=== PATIENT | male | born 1970 | race Caucasian/White ===

== ENCOUNTER 2020-08-31 14:58 | Outpatient (REF) | payer OTHER, SELFPAY | END 2020-08-31 14:59 | disposition home or self-care (01) | LOC: HO.BBR 14:58 | PROVIDERS: Visit Provider Internal Medicine Hematology | DX: Z13.89 Encounter for screening for other disorder (principal) ==

== ENCOUNTER 2020-12-11 12:58 | Outpatient (REF) | payer OTHER, SELFPAY | END 2020-12-11 12:59 | disposition home or self-care (01) | LOC: HO.BBR 12:58 | PROVIDERS: Visit Provider Internal Medicine Hematology | DX: Z13.89 Encounter for screening for other disorder (principal) ==

== ENCOUNTER 2021-01-30 14:57 | Outpatient (REF) | payer OTHER, SELFPAY | END 2021-01-30 14:58 | disposition home or self-care (01) | LOC: HO.BBR 14:57 | PROVIDERS: Visit Provider Internal Medicine Hematology | DX: E83.110 Hereditary hemochromatosis (principal) | CPT/HCPCS: 85014; 85018; 99195 ==

== ENCOUNTER 2021-04-04 14:07 | Outpatient (REF) | payer OTHER, SELFPAY | END 2021-04-04 14:08 | disposition home or self-care (01) | LOC: HO.BBR 14:07 | PROVIDERS: Visit Provider Internal Medicine Hematology | DX: Z13.89 Encounter for screening for other disorder (principal) ==

== ENCOUNTER 2021-08-02 14:57 | Outpatient (REF) | payer OTHER, SELFPAY | END 2021-08-02 14:58 | disposition home or self-care (01) | LOC: HO.BBR 14:57 | PROVIDERS: Visit Provider Internal Medicine Hematology | DX: Z13.89 Encounter for screening for other disorder (principal) ==

== ENCOUNTER 2021-11-29 15:00 | Outpatient (REF) | payer OTHER, SELFPAY | END 2021-11-29 15:01 | disposition home or self-care (01) | LOC: HO.BBR 15:00 | PROVIDERS: Visit Provider Internal Medicine Hematology | DX: Z13.89 Encounter for screening for other disorder (principal) ==

== ENCOUNTER 2022-03-20 14:48 | Outpatient (REF) | payer OTHER, SELFPAY | END 2022-03-20 14:49 | disposition home or self-care (01) | LOC: HO.BBR 14:48 | PROVIDERS: Visit Provider Internal Medicine Hematology | DX: Z13.89 Encounter for screening for other disorder (principal) ==

== ENCOUNTER 2022-07-10 15:05 | Outpatient (REF) | payer OTHER, SELFPAY | END 2022-07-10 15:06 | disposition home or self-care (01) | LOC: HO.BBR 15:05 | PROVIDERS: Visit Provider Internal Medicine Hematology | DX: Z13.89 Encounter for screening for other disorder (principal) ==

== ENCOUNTER 2022-10-16 14:23 | Outpatient (REF) | payer OTHER, SELFPAY | END 2022-10-16 14:24 | disposition home or self-care (01) | LOC: HO.BBR 14:23 | PROVIDERS: Visit Provider Internal Medicine Hematology | DX: Z13.89 Encounter for screening for other disorder (principal) ==

== ENCOUNTER 2023-01-14 15:03 | Outpatient (REF) | payer OTHER, SELFPAY | END 2023-01-14 15:04 | disposition home or self-care (01) | LOC: HO.BBR 15:03 | PROVIDERS: Visit Provider Internal Medicine Hematology | DX: Z13.89 Encounter for screening for other disorder (principal) ==

== ENCOUNTER 2023-04-16 14:58 | Outpatient (REF) | payer OTHER, SELFPAY | END 2023-04-16 14:59 | disposition home or self-care (01) | LOC: HO.BBR 14:58 | PROVIDERS: Visit Provider Internal Medicine Hematology | DX: Z13.89 Encounter for screening for other disorder (principal) ==

== ENCOUNTER 2023-08-04 14:53 | Outpatient (REF) | payer OTHER, SELFPAY | END 2023-08-04 14:54 | disposition home or self-care (01) | LOC: HO.BBR 14:53 | PROVIDERS: Visit Provider Internal Medicine Hematology | DX: Z13.89 Encounter for screening for other disorder (principal) ==

== ENCOUNTER 2023-11-10 14:54 | Outpatient (REF) | payer OTHER, SELFPAY | END 2023-11-10 14:55 | disposition home or self-care (01) | LOC: HO.BBR 14:54 | PROVIDERS: Visit Provider Internal Medicine Hematology | DX: Z13.89 Encounter for screening for other disorder (principal) ==

== ENCOUNTER 2024-02-09 14:37 | Outpatient (REF) | payer OTHER, SELFPAY | END 2024-02-09 14:38 | disposition home or self-care (01) | LOC: HO.BBR 14:37 | PROVIDERS: Visit Provider Internal Medicine Hematology | DX: Z13.89 Encounter for screening for other disorder (principal) ==

== ENCOUNTER 2024-05-10 14:47 | Outpatient (REF) | payer OTHER, SELFPAY | END 2024-05-10 14:48 | disposition home or self-care (01) | LOC: HO.BBR 14:47 | PROVIDERS: Visit Provider Internal Medicine Hematology | DX: Z13.89 Encounter for screening for other disorder (principal) ==

== ENCOUNTER 2024-07-29 14:35 | Outpatient (REF) | payer OTHER, SELFPAY | END 2024-07-29 14:36 | disposition home or self-care (01) | LOC: HO.BBR 14:35 | PROVIDERS: Visit Provider Internal Medicine Hematology | DX: Z13.89 Encounter for screening for other disorder (principal) ==

== ENCOUNTER 2024-11-01 09:30 | Outpatient (AMB) | payer OTHER, SELFPAY ==
--- NOTE | 2024-11-01 09:38 | A.OFFPC_ITS ---
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 He transferred from my panel at [facility]. He requested his medical records twice in March. There are no medical records available at the time of this visit. The patient provides the history since I do not have his medical records. Dr. Jones follows the patient for hemochromatosis. He has therapeutic phlebotomy every 3 months. He saw [facility] cardiology, Dr. Hitchcock, in 2023. He had an LDCT which showed coronary calcifications. He then had a coronary artery calcium score test done, and he was referred to Cardiology for further assessment. Patient had a negative stress test and echocardiogram. They recommended a statin for cardiovascular prevention, but he continues to decline the medication out of concern for side effects. He is working on quitting smoking. Patient believes he is due for LDCT at [facility]. He saw [facility] gastro for fatty liver disease. They ordered a repeat ultrasound, and he will have a follow up for the results. He received seasonal influenza vaccine and the COVID booster. ROS: Constitutional: No unexplained weight loss, fever, chills, fatigue or night sweats. Respiratory: No shortness of breath, cough or sputum production. Cardiovascular: No chest pain, chest pressure or chest discomfort. No p alpitations or pedal edema. Gastrointestinal: No anorexia, nausea, vomiting or diarrhea. No abdominal pain or blood in stool. Neurologic: No headache, dizziness, syncope Physical exam: Constitutional: Alert, in no distress. Neck: Supple, Full range of motion. No lymphadenopathy. Respiratory: Clear to auscultation. Cardiovascular: S1 S2 regular. No murmurs Psychiatric: Normal mood and affect REPLACED BY [facility] Medical History (Updated 11/01/24 @ 14:05 by GAYATRI Castañeda) Hyperlipidemia Tobacco use disorder Hepatic steatosis Hereditary hemochromatosis Screening for cardiovascular condition Surgical History (Updated 11/01/24 @ 10:08 by Mimi Lopez CMA) History of hip surgery Family History (Updated 11/01/24 @ 10:13 by Mimi Lopez CMA) Father Alcoholic COPD (chronic obstructive pulmonary disease) Depression CAD (coronary artery disease) Paternal Grandmother Alcoholic Paternal Grandfather Alcoholic Mother PTSD (post-traumatic stress disorder) Depression Brother Depression Other FH: mental illness HTN (hypertension) Lung cancer Substance abuse Social History Housing: House Alcohol intake: current Patient Tobacco Use Status: Current everyday Tobacco user Tobacco use type: Cigarette Cigarettes Per Day: 4 Years Smoked: 32 e-Cigarette/Vaping Use: Never Used Second Hand Smoke Exposure: No service: Yes Current occupational status: employed Current occupation: [employer] Current occupational exposures/hazards: Yes Cognitive needs: No Hearing needs: No Vision needs: No Questionnaire PHQ-9 Over the last 2 weeks, how often have you been bothered by any of the following problems? 1. Little interest or pleasure in doing things: not at all 2. Feeling down, depressed, or hopeless: not at all 3. Trouble falling or staying asleep, or sleeping too much: not at all 4. Feeling tired or having little energy: not at all 5. Poor appetite or overeating: not at all 6. Feeling bad about yourself - or that you are a failure or have let yourself or your family down: not at all 7. Trouble concentrating on things, such as reading the newspaper or watching television: not at all 8. Moving or speaking so slowly that other people could have noticed. Or the opposite - being so fidgety or restless that you have been moving around a lot more than usual: not at all 9. Thoughts that you would be better off or of hurting yourself in some way: not at all Total score: 0 Depression Screening Interpretation: Negative Depression Screening Done: Yes 82410 - PHQ-9 Billing: Yes Source: Developed by Drs. Freddie Jennings, Savita Card, Nile Kearney and colleagues, with an educational parish from [employer]. Thrive Questionnaire Date Thrive assessed: 11/01/24 I am a: Patient What is your living situation today?: I have a steady place to live Within the past 12 months, did the food you bought not last and you didn't have the money to get more?: Sometimes True Within the past 12 months, did you worry whether your food would run out before you got money to buy more?: Never true Do you have trouble paying for medicines?: No Do you have trouble getting transportation to medical appointments?: No Do you have trouble paying your heating and electricity bill?: No Do you have trouble taking care of your child, family member or friend?: No Do you have trouble with day-to-day activities such as bathing, preparing meals, shopping, managing finances, etc.?: No Are you currently unemployed and looking for a job?: No Are you interested in more education?: No Please select the resources that you would like help with: None Currently or been in a relationship where the following occur: No concerns reported THRIVE Score: 1 AUDIT C Alcohol Use Questionnaire (AUDIT-C) 1. How often do you have a drink containing alcohol?: Monthly or less 2. How many drinks containing alcohol do you have on a typical day when you are drinking?: 1 or 2 3. How often do you have six or more drinks on one occasion?: Never Total Score: 1 HANG-7 AMB Questionnaire HANG-7 Date HANG - 7 assessed: 11/01/24 Feeling nervous, anxious, or on edge: 0 = Not at all Not being able to stop or control worryin = Not at all Worrying too much about different things: 0 = Not at all Trouble relaxin = Not at all Being so restless that it is hard to sit still: 0 = Not at all Becoming easily annoyed or irritable: 0 = Not at all Feeling afraid as if something awful might happen: 0 = Not at all Total HANG-7 score (0-4 normal; 5-9 mild; 10-14 moderate; 15-21 severe): 0 Source: Developed by Drs. Freddie Jennings, Savita Card, Nile Kearney and colleagues, with an educational parish from [employer]. HANG-7 Assessment Billing HANG-7 Assessment Tool: HANG-7 Assessment 05762 Physical exam (Primary Care) Vital Signs: Last Vital Signs Pulse 72 11/01/24 09:45 BP 116/78 11/01/24 09:45 Pulse Ox 95 11/01/24 09:45 Oxygen Delivery Method Room Air 11/01/24 09:45 BMI result Body Mass Index 30.3 Tobacco/Smoking Status: Tobacco use Status Tobacco use date assessed 11/01/24 11/01/24 09:42 Patient Tobacco Use Status Current everyday Tobacco 11/01/24 09:42 Tobacco use type Cigarette 11/01/24 09:42 e-Cigarette/Vaping Use Never Used 11/01/24 09:42 PHQ-9: PHQ-9 Score PHQ-9: Total score 0 11/01/24 09:42 Depression Screening Interpretation: Negative Currently or been in a relationship where the following occur: No concerns reported Coding Level of Care Code Est Pt Level 4 (38905) Complex EM visit Add On G2211 Diagnoses Tobacco use disorder F17.200 Hepatic steatosis K76.0 Hereditary hemochromatosis E83.110 Additional Codes HANG-7 Assessment Billing - HANG-7 Assessment Tool: HANG-7 Assessment 65735 ([id number]) PHQ-9 - 44981 - PHQ-9 Billing: Yes ([id number]) Assessment & Plan Assessment & Plan (1) Tobacco use disorder: Code(s): F17.200 - Nicotine dependence, unspecified, uncomplicated Category: Medical Plan: I strongly recommended smoking cessation and discussed available methods. He will continue to cut down gradually. Patient referred back to [facility] pulmonary for LDCT program (2) Hepatic steatosis: Code(s): K76.0 - Fatty (change of) liver, not elsewhere classified Category: Medical Plan: Avoid alcohol. Follow a low-cholesterol diet and avoid processed foods. This is monitored by Gastroenterology. (3) Hereditary hemochromatosis: Code(s): E83.110 - Hereditary hemochromatosis Category: Medical Plan: Managed by Hematology. Plan Patient will schedule a physical exam and have fasting lab work done. Orders: Orders Comprehensive Met. Panel Today E83.110 - Hereditary hemochromatosis, K76.0 - Fatty (change of) liver, not elsewhere classified, Z00.00 - Encounter for general adult medical examination without abnormal findings, Z13.6 - Encounter for screening for cardiovascular disorders Complete Blood Count no Diff Today E83.110 - Hereditary hemochromatosis, K76.0 - Fatty (change of) liver, not elsewhere classified, Z00.00 - Encounter for general adult medical examination without abnormal findings, Z13.6 - Encounter for screening for cardiovascular disorders Lipid Panel Today E78.5 - Hyperlipidemia, unspecified, E83.110 - Hereditary hemochromatosis, K76.0 - Fatty (change of) liver, not elsewhere classified, Z00.00 - Encounter for general adult medical examination without abnormal findings, Z13.6 - Encounter for screening for cardiovascular disorders Prostate Specific Antigen Today E83.110 - Hereditary hemochromatosis, K76.0 - Fatty (change of) liver, not elsewhere classified, Z00.00 - Encounter for general adult medical examination without abnormal findings, Z12.5 - Encounter for screening for malignant neoplasm of prostate, Z13.6 - Encounter for screening for cardiovascular disorders Referrals Pulmonology Referral F17.200 - Nicotine dependence, unspecified, uncomplicated
[2024-11-01 09:45] VITALS: BP 116/78; PULSE 72; O2SAT 95; BMI 30.3
--- OUTSIDE RECORDS SUMMARY | 2024-11-01 10:15 | XMS_ITS | Continuity of Care Document ---
Author Organization [facility] Address [address] [place] [address] [address] [place] [address] Phone Care Team Providers Care Six Color Press Operator Name Role Phone Galindo Luz MD, FACS, RVT Unavailable Unavailable Advance Directives Directive Yes / No Effective Date File Name No Information Encounters Encounter Description Practice Location Reason(s) For Visit Diagnoses Date Provider Providers Copied on Encounter [facility], [address] [facility] [address], [place], [id number], tel:[phone] 1887 [facility] No Information 0 3 Mirza Morris. [address] [place] [address], [address], . tel:[phone] Referring Provider: Marcela Yang PA-C, [address] [place] [address] [place] [address], [address]. tel:[phone] Family History Family Member Type Diagnosis Age At Onset No Information Payers Payer name Insurance type Covered alliance party ID [facility] [employer](s) [employer] [place] CI [id number] Social History Type Description Quantity Date Captured [...]
== END 2024-11-01 10:24 | disposition home or self-care (01) ==
PROVIDERS: Visit Provider Physician Assistant Medical
DX: F17.200 Nicotine dependence, unspecified, uncomplicated (principal); K76.0 Fatty (change of) liver, not elsewhere classified; E83.110 Hereditary hemochromatosis

== ENCOUNTER → 2024-11-01 09:30 | Outpatient (BNVA) | payer OTHER, SELFPAY | PROVIDERS: Visit Provider Physician Assistant Medical | DX: E83.110 Hereditary hemochromatosis (principal); K76.0 Fatty (change of) liver, not elsewhere classified; F17.200 Nicotine dependence, unspecified, uncomplicated | CPT/HCPCS: 96127 ==

== ENCOUNTER 2024-12-13 14:20 | Outpatient (REF) | payer OTHER, SELFPAY ==
[2024-12-13 14:59] LABS: Hematocrit 41.6 % (42.0-52.0); Hemoglobin 15.4 g/dl (14.0-18.0); Mean Corpuscular Hemoglobin 34.4 pg (27.0-33.0); Mean Corpuscular Volume 92.9 fL (80.0-98.0); Mean Platelet Volume 9.5 fL (9.4-12.4); Platelet Count 200 X10*3/uL (160-400); Red Blood Count 4.48 X10*6/uL (4.60-5.80); Red Cell Distribution Width 12.1 % (11.0-16.0); White Blood Count 7.5 X10*3/uL (4.8-10.8)
[2024-12-13 17:11] LABS: Alanine Aminotransferase 174 U/L (0-40); Albumin Level 4.3 g/dL (3.5-5.0); Anion Gap 13 (12-20); Aspartate Amino Transferase 57 U/L (5-37); Bilirubin Total 1.2 mg/dL (0.0-1.0); Blood Urea Nitrogen 10 mg/dL (9-16); Calcium 8.9 mg/dL (8.4-10.2); Carbon Dioxide 26 mmol/L (22-29); Chloride 106 mmol/L (96-108); Cholesterol 156 mg/dL (<200); Estimated Glomerular Filt Rate > 60; Glucose Random 106 mg/dL (60-115); HDL Cholesterol 34 mg/dL (>40); Potassium 4.4 mmol/L (3.3-5.1); Sodium 141 mmol/L (135-145); Total Protein 7.7 g/dL (6.5-8.0); Triglycerides 504 mg/dL (<150)
[2024-12-13 17:24] LABS: Alkaline Phosphatase 80 U/L (39-117)
[2024-12-13 20:35] LABS: Prostate Specific Antigen 0.99 ng/mL (<0.05-4.0)
== END 2024-12-13 14:21 | disposition home or self-care (01) ==
LOC: HO.BBR 14:20
PROVIDERS: Absent Provider Physician Assistant Medical; PCP Physician Assistant Medical; Visit Provider Internal Medicine Hematology
DX: Z00.00 Encounter for general adult medical examination without abnormal findings (principal)
CPT/HCPCS: 36415; 80053; 80061; 84153; 85027

== ENCOUNTER 2025-01-31 07:50 | Outpatient (REF) | payer OTHER, SELFPAY ==
--- NOTE | ~2025-01-31 | US_ITS ---
EXAMINATION: US ABDOMEN LIMITED WITH LIVER ELASTOGRAPHY HISTORY: E78.5 - Hyperlipidemia, unspecified TECHNIQUE: Real-time grayscale ultrasound imaging of the right upper quadrant was performed and images were reviewed. COMPARISON: There are no prior studies for comparison. FINDINGS: Liver: The right lobe of the liver measures 16.5 cm in size. The left lobe of the liver measures 11.6 cm in size. The liver demonstrates increased echotexture, consistent with steatosis. There is focal fatty sparing adjacent to the gallbladder. No focal mass or intrahepatic biliary ductal dilatation is identified. There is normal hepatopedal flow in the portal vein. Ultrasound elastography of the liver was performed with 10 separate measurements of the liver parenchyma with the patient in the supine position. Measurements were obtained approximately 2 cm below Oscar's capsule and perpendicular to the capsule. Images are of satisfactory quality. The median shear wave velocity is 1.86 m/s. The interquartile range/median (IQR/median) is 0.05. Gallbladder and biliary tree: The gallbladder is unremarkable, without evidence of calculi, wall thickening, or pericholecystic fluid. There is no sonographic Stout sign. The common bile duct is normal in caliber measuring 3 mm. Right Kidney: The right kidney measures 12.3 cm in length and demonstrates a 2.2 x 2.0 x 2.2 cm cyst at the upper pole. The right kidney is otherwise unremarkable, without evidence of solid masses, hydronephrosis, or calculi. Pancreas: The pancreatic head, neck, and body are unremarkable. The pancreatic tail is obscured by bowel gas. Abdominal aorta and inferior vena cava: The visualized portions of the abdominal aorta and inferior vena cava are normal in caliber. There is no free fluid in the right upper quadrant. US/US abdomen lagunas w elastography IMPRESSION: Hepatomegaly and hepatic steatosis. The median shear wave velocity in the liver is 1.86 m/s, corresponding to a median liver stiffness of 10.40 kPa. The IQR/median value is 0.05. This is indicative of a quality data set. Findings are indicative of a high elastography value suggestive of compensated advanced chronic liver disease. REFERENCE: Society of Radiologists in Ultrasound Liver Stiffness Thresholds (2020): LIVER STIFFNESS THRESHOLDS: *Shear wave velocity less than 1.3 m/s (Liver Stiffness equal or less than 5 kPa): High probability of being normal. *Shear wave velocity less than 1.7 m/s (Liver Stiffness less than 9 kPa): In the absence of other known clinical signs, rules out compensated advanced chronic liver disease. *Shear wave velocity between 1.7-2.1 m/s (Liver Stiffness 9-13 kPa): Suggestive of compensated advanced chronic liver disease but need further test for confirmation. *Shear wave velocity between 2.1-2.4 m/s (Liver Stiffness 13-17 kPa): Rules in compensated advanced chronic liver disease. *Shear wave velocity greater than 2.4 m/s (Liver Stiffness over 17 kPa): Suggestive of clinically significant portal hypertension. QUALITY OF DATA SET: *IQR/Median value equal or less than 0.15 implies a quality data set. *IQR/Median value over 0.15 implies a poor quality data set. SIGNIFICANT CHANGE FROM PRIOR EXAM: Significant change if liver stiffness measurement is 10% or greater from prior exam. OTHER CONSIDERATIONS: The stage of liver fibrosis may be overestimated in the setting of acute hepatitis, liver inflammation, elevated liver function tests, hepatic vascular congestion, obstructive cholestasis, non-fasting state, and infiltrative diseases such as amyloidosis and lymphoma. In some patients with NAFLD, the liver stiffness thresholds for compensated advanced chronic liver disease may be lower. In causes other than viral hepatitis and NAFLD, liver stiffness thresholds are not well established. Electronically signed by: Freddie Oconnell MD 01/31/2025 10:44 AM EDT
--- OUTSIDE RECORDS SUMMARY | 2025-01-31 07:54 | XMS_ITS | Continuity of Care Document ---
Author Organization [facility] Address [address] [place] [address] [address] [place] [address] Phone Care Team Providers Care Winding Operator Name Role Phone Galindo Luz MD, FACS, RVT Unavailable Unavailable Advance Directives Directive Yes / No Effective Date File Name No Information Encounters Encounter Description Practice Location Reason(s) For Visit Diagnoses Date Provider Providers Copied on Encounter [facility], [address] [facility] [address], [place], [id number], tel:[phone] 3314 [facility] No Information 0 3 Mirza Morris. [address] [place] [address], [address], . tel:[phone] Referring Provider: Marcela Yang PA-C, [address] [place] [address] [place] [address], [address]. tel:[phone] Family History Family Member Type Diagnosis Age At Onset No Information Payers Payer name Insurance type Covered libertarian ID [facility] [employer](s) [employer] [place] CI [id number] Social History Type Description Quantity Date Captured [...]
== END 2025-01-31 07:51 | disposition home or self-care (01) ==
LOC: HO.US 07:50
PROVIDERS: PCP Physician Assistant Medical; Visit Provider Physician Assistant Medical
DX: K76.0 Fatty (change of) liver, not elsewhere classified (principal); E78.5 Hyperlipidemia, unspecified
CPT/HCPCS: 76705; 76981

== ENCOUNTER → 2025-01-31 07:51 | Outpatient (BNV) | payer OTHER, SELFPAY | PROVIDERS: PCP Physician Assistant Medical; Visit Provider Radiology Diagnostic Radiology | DX: R16.0 Hepatomegaly, not elsewhere classified (principal); K76.0 Fatty (change of) liver, not elsewhere classified | CPT/HCPCS: 76705; 76981 ==

== ENCOUNTER 2025-02-25 07:55 | Outpatient (REF) | payer OTHER, SELFPAY ==
--- OUTSIDE RECORDS SUMMARY | 2025-02-25 07:58 | XMS_ITS | Continuity of Care Document ---
Author Organization [facility] Address [address] [place] [address] [address] [place] [address] Phone Care Team Providers Care Organ Tuner Name Role Phone Galindo Luz MD, FACS, RVT Unavailable Unavailable Advance Directives Directive Yes / No Effective Date File Name No Information Encounters Encounter Description Practice Location Reason(s) For Visit Diagnoses Date Provider Providers Copied on Encounter [facility], [address] [facility] [address], [place], [id number], tel:[phone] 5870 [facility] No Information 0 3 Mirza Morris. [address] [place] [address], [address], . tel:[phone] Referring Provider: Marcela Yang PA-C, [address] [place] [address] [place] [address], [address]. tel:[phone] Family History Family Member Type Diagnosis Age At Onset No Information Payers Payer name Insurance type Covered libertarian ID [facility] [employer](s) [employer] [place] CI [id number] Social History Type Description Quantity Date Captured [...]
[2025-02-25 11:31] LABS: Cholesterol 157 mg/dL (<200); HDL Cholesterol 38 mg/dL (>40); LDL Cholesterol Calculated 98 mg/dL (<100); Triglycerides 107 mg/dL (<150)
[2025-02-28 08:39] LABS: LDL Cholesterol Direct 108 mg/dL (<100)
== END 2025-02-25 07:56 | disposition home or self-care (01) ==
LOC: HO.WFDLDS 07:55
PROVIDERS: Visit Provider Physician Assistant Medical
DX: E78.5 Hyperlipidemia, unspecified (principal); K76.0 Fatty (change of) liver, not elsewhere classified
CPT/HCPCS: 36415; 80061; 83721

== ENCOUNTER 2025-02-28 15:54 | Outpatient (AMB) | payer OTHER, SELFPAY ==
--- OUTSIDE RECORDS SUMMARY | 2025-02-28 15:57 | XMS_ITS | Continuity of Care Document ---
Author Organization [facility] Address [address] [place] [address] [address] [place] [address] Phone Care Team Providers Care Train Engineer Name Role Phone Galindo Luz MD, FACS, RVT Unavailable Unavailable Advance Directives Directive Yes / No Effective Date File Name No Information Encounters Encounter Description Practice Location Reason(s) For Visit Diagnoses Date Provider Providers Copied on Encounter [facility], [address] [facility] [address], [place], [id number], tel:[phone] No Information 0 3 Mirza Morris. [address] [place] [address], [address], . tel:[phone] Referring Provider: Marcela Yang PA-C, [address] [place] [address] [place] [address], [address]. tel:[phone] Family History Family Member Type Diagnosis Age At Onset No Information Payers Payer name Insurance type Covered alliance party ID [facility] [employer] [place] CI [id number] Social History Type Description Quantity Date Captured [...] Dates (start - stop) Status Members No Information"
--- NOTE | 2025-02-28 16:03 | MHC.PC.OV ---
Vital Signs 02/28/25 16:10 Height 5 ft 9.5 in Weight 195 lb BMI 28.4 BP 118/68 Blood Pressure Location Rt brachial Position Sitting Pulse 81 Pulse Source Pulse Oximeter Temp 97.9 F Temp Source Temporal Artery Scan Pulse Oximetry (%) 95 Oxygen Delivery Method Room Air Intake Visit Reasons: annual physical Intake Note: Arnold presents in the office today for his annual physical. Allergies latex Allergy (Unknown, Verified 02/28/25 16:07) Rash Medication List - Last Reconciled 02/28/25 by GAYATRI Castañeda tadalafil 20 mg PO DAILY PRN varenicline tartrate (Chantix Starting Month Box) PO PER PKG DIR Tobacco use date assessed: 02/28/25 Dental Screening Dental Screen Date: 02/28/25 Did you have a dental visit in the last 12 months?: Yes Did you have a dental problem in the last 6 months where you did not have access to dental care?: No Was dental information given to patient?: Patient has dentist HPI HPI Comments History of Present Illness Details This is a 54-year-old male with a past medical history of hemochromatosis, hepatic steatosis, tobacco use disorder, obesity and hypertriglyceridemia presenting for a physical exam. Dr. Jones follows the patient for hemochromatosis. He has therapeutic phlebotomy every 3 months. He saw [facility] cardiology, Dr. Hitchcock, in 2023. He had an LDCT which showed coronary calcifications. He then had a coronary artery calcium score test done, and he was referred to Cardiology for further assessment. Patient had a negative stress test and echocardiogram. They recommended a statin for cardiovascular prevention, but he continues to decline the medication out of concern for side effects. We reviewed this again today, and we discussed that his ASCVD risk score is elevated at 7.7 %, but he continues to decline cholesterol-lowering medications. He implemented lifestyle modifications after his last blood test showed triglycerides of 504. His HDL improved, LDL is 108, and his triglycerides are now at goal. He has lost about 15 lb since October. He is working on quitting smoking. [facility] did not call for LDCT, and he requests a referral to the [facility] program. He would like to restart Chantix. It worked for him in the past, and it did not cause side effects. He saw [facility] gastro for fatty liver disease, and he was supposed to follow up so I placed a referral. He was never contacted so he would like to see [facility]. He will be due for colonoscopy this fall. He has colon polyps and has the procedure every 3 years. He has a history of varicose veins, and he uses compression stockings which have been quite helpful. He received seasonal influenza vaccine and the COVID booster. Tetanus up to date. He doesn't think he's had chicken pox ever and was not vaccinated. Varicella IgG ordered. Pneumonia vaccine recommended-she can get this at the pharmacy. ROS: Constitutional: No unexplained weight loss, fever, chills, fatigue or night sweats. Eyes: No vision changes, blurry vision, double vision, eye pain, eye redness, eye discharge. ENT: No hearing loss, sneezing, congestion, runny nose or sore throat. Respiratory: No shortness of breath, cough or sputum production. Cardiovascular: No chest pain, chest pressure or chest discomfort. No palpitations or pedal edema. Gastrointestinal: No anorexia, nausea, vomiting or diarrhea. No abdominal pain or blood in stool. Genitourinary: No dysuria, hematuria, urinary frequency. Neurologic: No headache, dizziness, syncope, unilateral weakness, ataxia, numbness or tingling in the extremities. Musculoskeletal: No muscle pain, back pain, joint pain or swelling. Hematologic/Lymphatics: No bleeding or bruising. No painful lymph nodes. Skin: No rash or itching. No changing moles or new moles. Endocrine: No cold or heat intolerance. No polyuria or polydipsia. Psychiatric: No depression or anxiety. No SI/HI. Physical exam: Constitutional: Alert, in no distress. Head: Normocephalic. Eyes: Pupils are equal, round and reactive to light. Extraocular muscles intact. Ear, Nose and Throat: Canals clear. TMs normal. Normal nasal mucosa. No nasal discharge. No oral lesions. Neck: Supple, Full range of motion. No lymphadenopathy. No palpable thyroid masses. Respiratory: Clear to auscultation. Cardiovascular: S1 S2 regular. No murmurs. Gastrointestinal: Abdomen soft, non-tender, non-distended. Normal bowel sounds. No palpable masses. Genitourinary: Deferred. Patient says he does home exams and reports there are no concerning findings. Neurologic: No focal neurological deficits. Symmetric patellar reflexes. Moves all extremities spontaneously. Sensation intact bilaterally. Skin: No rashes Musculoskeletal: No gross deformities. Normal range of motion. Extremities: Warm and well perfused. No clubbing, cyanosis or edema. Intact peripheral pulses bilaterally. Psychiatric: Normal mood and affect [facility] Medical History (Updated 02/28/25 @ 17:09 by GAYATRI Castañeda) Routine physical examination Hypertriglyceridemia Colon polyps Antibody response exam Hepatomegaly Elevated LFTs Hyperlipidemia Tobacco use disorder Hepatic steatosis Hereditary hemochromatosis Screening for cardiovascular condition Surgical History (Updated 11/01/24 @ 10:08 by Mimi Lopez CMA) History of hip surgery Family History Father Alcoholic COPD (chronic obstructive pulmonary disease) Depression CAD (coronary artery disease) Paternal Grandmother Alcoholic Paternal Grandfather Alcoholic Mother PTSD (post-traumatic stress disorder) Depression Brother Depression Other FH: mental illness HTN (hypertension) Lung cancer Substance abuse Social History (Updated 02/28/25 @ 16:08 by Reyna Arreaga MA) Housing: House Alcohol intake: current Patient Tobacco Use Status: Current everyday Tobacco user Tobacco use type: Cigarette Cigarettes Per Day: 4 Years Smoked: 32 e-Cigarette/Vaping Use: Never Used Second Hand Smoke Exposure: No service: Yes Current occupational status: employed 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 1. Little interest or pleasure in doing things: not at all 2. Feeling down, depressed, or hopeless: not at all 3. Trouble falling or staying asleep, or sleeping too much: not at all 4. Feeling tired or having little energy: not at all 5. Poor appetite or overeating: not at all 6. Feeling bad about yourself - or that you are a failure or have let yourself or your family down: not at all 7. Trouble concentrating on things, such as reading the newspaper or watching television: not at all 8. Moving or speaking so slowly that other people could have noticed. Or the opposite - being so fidgety or restless that you have been moving around a lot more than usual: not at all 9. Thoughts that you would be better off or of hurting yourself in some way: not at all Total score: 0 Depression Screening Interpretation: Negative Depression Screening Done: Yes 24814 - PHQ-9 Billing: Patient declined-do not bill Source: Developed by Drs. Freddie Jennings, Savita Card, Nile Kearney and colleagues, with an educational parish from [employer]. Thrive Questionnaire Date Thrive assessed: 02/28/25 I am a: Patient What is your living situation today?: I have a steady place to live Within the past 12 months, did the food you bought not last and you didn't have the money to get more?: Never true Within the past 12 months, did you worry whether your food would run out before you got money to buy more?: Never true Do you have trouble paying for medicines?: No Do you have trouble getting transportation to medical appointments?: No Do you have trouble paying your heating and electricity bill?: No Do you have trouble taking care of your child, family member or friend?: No Do you have trouble with day-to-day activities such as bathing, preparing meals, shopping, managing finances, etc.?: No Are you currently unemployed and looking for a job?: No Are you interested in more education?: No Please select the resources that you would like help with: None Currently or been in a relationship where the following occur: No concerns reported THRIVE Score: 0 AUDIT C Alcohol Use Questionnaire (AUDIT-C) 1. How often do you have a drink containing alcohol?: Monthly or less 2. How many drinks containing alcohol do you have on a typical day when you are drinking?: 1 or 2 3. How often do you have six or more drinks on one occasion?: Never Total Score: 1 Score Reviewed/Action Taken: No HANG-7 AMB Questionnaire HANG-7 Date HANG - 7 assessed: 02/28/25 Feeling nervous, anxious, or on edge: 0 = Not at all Not being able to stop or control worryin = Not at all Worrying too much about different things: 0 = Not at all Trouble relaxin = Not at all Being so restless that it is hard to sit still: 0 = Not at all Becoming easily annoyed or irritable: 0 = Not at all Feeling afraid as if something awful might happen: 0 = Not at all Total HANG-7 score (0-4 normal; 5-9 mild; 10-14 moderate; 15-21 severe): 0 Source: Developed by Drs. Freddie Jennings, Savita Card, Nile Kearney and colleagues, with an educational parish from [employer]. HANG-7 Assessment Billing HANG-7 Assessment Tool: HANG-7 Assessment 59715 Physical exam (Primary Care) Vital Signs: Last Vital Signs Temp 97.9 F 02/28/25 16:10 Pulse 81 02/28/25 16:10 BP 118/68 02/28/25 16:10 Pulse Ox 95 02/28/25 16:10 Oxygen Delivery Method Room Air 02/28/25 16:10 BMI result Body Mass Index 28.4 Tobacco/Smoking Status: Tobacco use Status Tobacco use date assessed 02/28/25 02/28/25 16:05 Patient Tobacco Use Status Current everyday Tobacco 02/28/25 16:08 Tobacco use type Cigarette 02/28/25 16:08 e-Cigarette/Vaping Use Never Used 02/28/25 16:08 PHQ-9: PHQ-9 Score PHQ-9: Total score 0 02/28/25 16:14 Depression Screening Interpretation: Negative Thrive Assessment: Date of Thrive Assessment Date Thrive assessed 02/28/25 02/28/25 16:14 Currently or been in a relationship where the following occur: No concerns reported Coding Level of Care Code Est Pt Prev Care 40-64y(61277) Diagnoses Colon polyps K63.5 Hepatomegaly R16.0 Hyperlipidemia E78.5 Tobacco use disorder F17.200 Hepatic steatosis K76.0 Hereditary hemochromatosis E83.110 Hypertriglyceridemia E78.1 Routine physical examination Z00.00 Additional Codes HANG-7 Assessment Billing - HANG-7 Assessment Tool: HANG-7 Assessment 33389 ([id number]) Assessment & Plan Assessment & Plan (1) Colon polyps: Code(s): K63.5 - Polyp of colon Category: Medical Plan: Referred to [facility]. Due for colonoscopy this fall. (2) Hepatomegaly: Code(s): R16.0 - Hepatomegaly, not elsewhere classified Category: Medical Plan: Continue avoidance of processed foods and high-cholesterol foods and alcohol. We did not receive transfer records from [facility] though I believe he was screened for hepatitis a, B and C there. We will repeat labs with hepatitis serologies. Referred to [facility] gastro. (3) Hyperlipidemia: Code(s): E78.5 - Hyperlipidemia, unspecified Category: Medical Plan: See above discussion in HPI. Continue lifestyle modifications. (4) Tobacco use disorder: Code(s): F17.200 - Nicotine dependence, unspecified, uncomplicated Category: Medical Plan: Patient would like to quit. Refer to [facility] lung cancer screening program. Prescribed Chantix. He tolerated it well. (5) Hepatic steatosis: Code(s): K76.0 - Fatty (change of) liver, not elsewhere classified Category: Medical (6) Hereditary hemochromatosis: Code(s): E83.110 - Hereditary hemochromatosis Category: Medical Plan: Followed by Dr. Escalera. (7) Hypertriglyceridemia: Code(s): E78.1 - Pure hyperglyceridemia Category: Medical Plan: Resolved with lifestyle modifications. (8) Routine physical examination: Code(s): Z00.00 - Encounter for general adult medical examination without abnormal findings Category: Medical Plan: Patient is seen today for a routine physical. As part of this visit we reviewed the following issues, which are considered and essential part of preventative health in this age group: - Testicular cancer screening, which includes self exam teaching - Screening for colon cancer - Discussed Prostate cancer screening - Blood pressure screening annually - Cholesterol screening - Nutritional and exercise counseling - Counseling of injury prevention including fire prevention, smoke alarms and seat belt usage - Screening for depression - Education about skin cancer - Recommendations about immunizations - Recommendation of an eye exam - Screening for substance abuse Plan Schedule physical exam in 1 year. Orders: Orders Hepatitis A IgM Today R79.89 - Other specified abnormal findings of blood chemistry Liver Panel Today R79.89 - Other specified abnormal findings of blood chemistry Varicella IgG Antibody Today Z01.84 - Encounter for antibody response examination Hepatitis A,B,C Profile Today R79.89 - Other specified abnormal findings of blood chemistry Referrals Pulmonology Referral F17.200 - Nicotine dependence, unspecified, uncomplicated Medications: New varenicline tartrate (Chantix Starting Month Box) PO PER PKG DIR 53 ea 0RF
[2025-02-28 16:10] VITALS: BP 118/68; PULSE 81; TEMP 36.6; O2SAT 95; BMI 28.4
== END 2025-02-28 17:06 | disposition home or self-care (01) ==
LOC: HO.HMCFM 15:54
PROVIDERS: PCP Physician Assistant Medical; Visit Provider Physician Assistant Medical
DX: K63.5 Polyp of colon (principal); R16.0 Hepatomegaly, not elsewhere classified; E78.5 Hyperlipidemia, unspecified; F17.200 Nicotine dependence, unspecified, uncomplicated; K76.0 Fatty (change of) liver, not elsewhere classified; E83.110 Hereditary hemochromatosis; E78.1 Pure hyperglyceridemia; Z00.00 Encounter for general adult medical examination without abnormal findings

== ENCOUNTER → 2025-02-28 15:54 | Outpatient (BNVA) | payer OTHER, SELFPAY | PROVIDERS: PCP Physician Assistant Medical; Visit Provider Physician Assistant Medical | DX: Z00.00 Encounter for general adult medical examination without abnormal findings (principal); K63.5 Polyp of colon; R16.0 Hepatomegaly, not elsewhere classified; E78.5 Hyperlipidemia, unspecified; K76.0 Fatty (change of) liver, not elsewhere classified; E83.110 Hereditary hemochromatosis; E78.1 Pure hyperglyceridemia; F17.210 Nicotine dependence, cigarettes, uncomplicated | CPT/HCPCS: 96127 ==

== ENCOUNTER 2025-03-15 14:16 | Outpatient (REF) | payer OTHER, SELFPAY ==
--- OUTSIDE RECORDS SUMMARY | 2025-03-15 14:25 | XMS_ITS | Continuity of Care Document ---
Author Organization [facility] Address [address] [place] [address] [address] [place] [address] Phone Care Team Providers Care Correctional Case Manager Name Role Phone Galindo Luz MD, FACS, RVT Unavailable Unavailable Advance Directives Directive Yes / No Effective Date File Name No Information Encounters Encounter Description Practice Location Reason(s) For Visit Diagnoses Date Provider Providers Copied on Encounter [facility], [address] [facility] [address], [place], [id number], tel:[phone] [facility] No Information 0 3 Mirza Morris. [address] [place] [address], [address], . tel:[phone] Referring Provider: Marcela Yang PA-C, [address] [place] [address] [place] [address], [address]. tel:[phone] Family History Family Member Type Diagnosis Age At Onset No Information Payers Payer name Insurance type Covered libertarian ID [facility] [employer] [place] CI [id number] Social History Type Description Quantity Date Captured [...]
== END 2025-03-15 14:17 | disposition home or self-care (01) ==
LOC: HO.BBR 14:16
PROVIDERS: PCP Physician Assistant Medical; Visit Provider Internal Medicine Hematology
DX: Z13.89 Encounter for screening for other disorder (principal)

== ENCOUNTER 2025-04-15 10:16 | Outpatient (AMB) | payer OTHER, SELFPAY ==
--- NOTE | 2025-04-15 08:04 | A.OFFVIS_ITS ---
Intake Visit Reasons: Current Smoker Allergies latex Allergy (Unknown, Verified 02/28/25 16:07) Rash HPI HPI Current Smoker: Details: Initial visit for this 55yo smoker with a 30+PYH. Patient started smoking at age 22 for 33 years at 1ppd. Now at 1/2ppd. . Denies marijuana use. Denies second hand smoke exposure. Denies exposure to chemicals - [employer] 1989-. . Family history of lung cancer. Maternal Aunt Denies personal history of cancers. Denies chest CT in last year. . Denies recent travel outside the [place]. Denies recent respiratory illness or recent hospitalization for respiratory issues. Reports history of testing positive for COVID. Admits receiving COVID Vaccine. . Denies fever, chills, new/worsening cough, hemoptysis, hoarseness or dysphagia. Denies significant chest pain, significant dyspnea or unintentional weight loss. Patient Lung Cancer Screening Questionnaire reviewed with patient by provider. . Shared Decision Making Completed. Patient meets criteria. Discussed in detail with patient, the risk vs benefit of LDCT screening. Patient consents to proceed with scan. Discussed smoking cessation. . He does snore and has hx of RAMBO dx - on cpap 14yrs ago He plans to discuss with pcp having new sleep study. [facility] Medical History (Updated 04/15/25 @ 10:29 by Dana Walker PA-C) Hereditary hemochromatosis Hyperlipidemia Hypertriglyceridemia Nicotine dependence, cigarettes, uncomplicated Colon polyps Hepatic steatosis Hepatomegaly Elevated LFTs Antibody response exam Surgical History (Updated 04/15/25 @ 10:31 by Dana Walker PA-C) History of vasectomy History of hip surgery Family History Father Alcoholic COPD (chronic obstructive pulmonary disease) Depression CAD (coronary artery disease) Paternal Grandmother Alcoholic Paternal Grandfather Alcoholic Mother PTSD (post-traumatic stress disorder) Depression Brother Depression Other FH: mental illness HTN (hypertension) Lung cancer Substance abuse Social History (Updated 04/15/25 @ 10:25 by Dana Walker PA-C) Housing: House Alcohol intake: current Patient Tobacco Use Status: Current everyday Tobacco user Tobacco use type: Cigarette Cigarettes Per Day: 10 Years Smoked: (onset 22yo, 1ppd x 33yrs, now 1/2ppd - 30+PYH) e-Cigarette/Vaping Use: Never Used Second Hand Smoke Exposure: No service: Yes Current occupational status: employed 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 - Patient meets criteria for LDCT for lung cancer screening purposes and is asymptomatic. - Smoking cessation counseling offered. Patients can always call [phone]. - Will arrange for a LDCT scan of the chest for screening purposes at [facility]. - Risks, benefits, and alternatives were discussed in detail and the patient agrees to proceed. - Risks discussed include but are not limited to: radiation exposure, anxiety during testing and while awaiting results, false negatives, false positives and possibility of additional intervention such as further imaging or surgical procedures for benign disease. - Benefits are obviously detection of lung cancer at an early stage which can lead to improved outcomes. - Discussed the importance of screening program compliance with adherence to yearly LDCT scan as scheduled - or sooner interval scans for personalized screening regimen. - Discussed follow up plan. Our office will send a letter discussing results and if needed set up phone call and office visit based on CT findings. - Patient educated on results categorization and the management decisions for suspicious findings potentially found on the screening LDCT scan. Any patient with a Lung RADS score of 3 or 4 will be reviewed by a multidisciplinary team at [facility] to form a plan of action in regards to scan findings. - If further work up is warranted for a suspicious lung finding this will be followed by the Lung Cancer Screening program in conjunction with the Thoracic Surgery Department at [facility]. - A copy of the office note and LDCT will be sent to the patient's PCP - as well as documentation on any associated further plans of care. - Incidental findings on LDCT are the PCP's responsibility. These findings are indicated with an S finding on the LDCT Assessment. A note discussing the findings will be sent to the PCP who is then responsible for further management. - All questions answered.? Coding Level of Care Code Lung Cancer Screening G0296 Diagnoses Nicotine dependence, cigarettes, uncomplicated F17.210
== END 2025-04-15 10:45 | disposition home or self-care (01) ==
PROVIDERS: PCP Physician Assistant Medical; Referring Provider Physician Assistant Medical; Visit Provider Physician Assistant Medical
DX: F17.210 Nicotine dependence, cigarettes, uncomplicated (principal)
CPT/HCPCS: G0296

== ENCOUNTER 2025-04-15 10:35 | Outpatient (REF) | payer OTHER, SELFPAY ==
--- OUTSIDE RECORDS SUMMARY | 2022-12-24 13:19 | XMS_ITS | Continuity of Care Document ---
Author Organization [facility] Address [address] [place] [address] [address] [place] [address] Phone Care Team Providers Care Heater Furnace Name Role Phone Galindo Luz MD, FACS, RVT Unavailable Unavailable Advance Directives Directive Yes / No Effective Date File Name No Information Encounters Encounter Description Practice Location Reason(s) For Visit Diagnoses Date Provider Providers Copied on Encounter [facility], [address] [facility] [address], [place], [id number], tel:[phone] 5635 [facility] No Information 0 3 Mirza Morris. [address] [place] [address], [address], . tel:[phone] Referring Provider: Marcela Yang PA-C, [address] [place] [address] [place] [address], [address]. tel:[phone] Family History Family Member Type Diagnosis Age At Onset No Information Payers Payer name Insurance type Covered libertarian ID [facility] Keniu(s) [employer] [place] CI [id number] Social History Type Description Quantity Date Captured [...]
--- NOTE | ~2025-04-15 | CT_ITS ---
CLINICAL HISTORY: F17.210 - Nicotine dependence, cigarettes, uncomplicated CT lung cancer screening (LDCT) Comparison: None provided Technique: Axial CT images of the chest using low-dose technique. Referring provider counseled the patient on shared decision-making for LDCT screening. Additional counseling was provided on smoking cessation. Effective radiation dose total: DLP 46 mGycm, CTDIvol 1.4 mGy. Findings: Lung: No evidence of pneumonia or edema. 5 mm subpleural nodule within the right upper lobe posteriorly ( image 17 ). Mild scarring versus atelectasis within the right lower lobe. Coronary artery calcifications: Mild Limited upper abdomen: Unremarkable Other: None Impression: 1. Coronary artery disease. 2. LungRADS 2 - Benign Appearance: Continue annual screening with low dose Chest CT in 12 months. ##L2## Category 1: Normal; continue annual screening Category 2: Benign appearance or behavior, continue annual screening Category 3: Probably benign, [address] recommended Category 4A: Suspicious, [address] recommended; may consider PET/CT Category 4B: Suspicious, Additional diagnostics and/or tissue sampling recommended Category 4X: Suspicious, Additional diagnostics and/or tissue sampling recommended Category 0: Recalls (incomplete screen due to Incomplete coverage, Noise, Respiratory motion, Expiration, Obscured by acute abnormality) This document has been electronically signed by: Norm Banegas MD on 04/16/2025 19:57:59
== END 2025-04-15 10:36 | disposition home or self-care (01) ==
LOC: HO.CT 10:35
PROVIDERS: PCP Physician Assistant Medical; Visit Provider Physician Assistant Medical
DX: Z12.2 Encounter for screening for malignant neoplasm of respiratory organs (principal); F17.210 Nicotine dependence, cigarettes, uncomplicated
CPT/HCPCS: 71271

== ENCOUNTER → 2025-04-15 10:36 | Outpatient (BNV) | payer OTHER, SELFPAY | PROVIDERS: PCP Physician Assistant Medical; Visit Provider Radiology Diagnostic Radiology | DX: F17.210 Nicotine dependence, cigarettes, uncomplicated (principal) | CPT/HCPCS: 71271 ==

== ENCOUNTER 2025-06-14 14:49 | Outpatient (REF) | payer OTHER, SELFPAY ==
--- OUTSIDE RECORDS SUMMARY | 2022-12-24 13:19 | XMS_ITS | Continuity of Care Document ---
Author Organization [facility] Address [address] [place] [address] [address] [place] [address] Phone Care Team Providers Care Campaign Associate Name Role Phone Galindo Luz MD, FACS, RVT Unavailable Unavailable Advance Directives Directive Yes / No Effective Date File Name No Information Encounters Encounter Description Practice Location Reason(s) For Visit Diagnoses Date Provider Providers Copied on Encounter [facility], [address] [facility] [address], [place], [id number], tel:[phone] [address] [facility] No Information 0 3 Mirza Morris. [address] [place] [address], [address], . tel:[phone] Referring Provider: Marcela Yang PA-C, [address] [place] [address] [place] [address], [address]. tel:[phone] Family History Family Member Type Diagnosis Age At Onset No Information Payers Payer name Insurance type Covered republican ID [facility] [employer] [employer] [place] CI [id number] Social History Type Description Quantity Date Captured [...]
--- OUTSIDE RECORDS SUMMARY | 2025-06-14 15:44 | XMS_ITS | Encounter Summary ---
Author Organization [facility] Address [address] [place] [address] Phone Care Team Providers Care Carpenters Helper Name Role Phone Macy Kevin NP Primary Care Provider Marcela Yang Primary Care Provide r Encounter Details Date Type Department Care Team (Latest Contact Info) Description 02/13/2023 Ancillary Orders [facility] [address] Floor, [address] [place] [address] Jose M Norwood DO [address] [place] [address] [email or web address] Varicose veins of both lower extremities with complications Social History Tobacco Use Types Packs/Day Years Used Date Smoking Tobacco: Every Day Cigarettes Smokeless Tobacco: Current Education Answer Date Recorded Are you interested in more education? Not on sienna e 02/13/2023 Are you concerned about learning? Not on file 02/13/2023 No 02/13/2023 No 02/13/2023 Sex and Gender Information Value Date Recorded Sex Assigned at Not on file Legal Sex Male 9:35 AM EDT Gender Identity Not on file Sexual Orientation Not on file documented as of this encounter Plan of Treatment Not on file documented as of this encounter Visit Diagnoses Diagnosis Varicose veins of both lower extremities with complications documented in this encounter Additional Health Concerns Infection Onset Date Last Indicated Resolved Time CoV-Risk 11/15/2024 11/15/2024 11/26/2024 1:22 AM EST documented as of this encounter Care Teams Carpenters Helper Relationship Specialty Start Date End Date Macy Kevin NP [address] [place] [phone] PCP - General Family Medicine 02/16/21 11/14/24 Marcela Yang PA [address] [place] [id number] PCP - General Physician Catalog Librarian 11/15/24 documented as of this encounter Additional Source Comments The information contained in this document represents components of the legal health record. It is not the complete legal health record.[facility]
--- OUTSIDE RECORDS SUMMARY | 2025-06-14 15:44 | XMS_ITS | Clinical Summary ---
Author Organization [facility] Address [address] [facility] [address] [place] [phone] Phone Care Team Providers Care Nurse Advisor Name Role Phone Marcela Yang Primary Care Provide r Allergies Active Allergy Reactions Criticality Noted Date Comments Latex Rash Low 01/20/2023 Medications tadalafiL (CIALIS) 10 MG tabletIndication s:Erectile dysfunction, unspecified erectile dysfunction type Take 1 tablet (10 mg total) by mouth daily as needed. Take at least 30 minutes before desired effect. 12 tablet 11 1 Active Additional Information Patient taking differently:10 mg Oral Daily as needed, Take at least 30 minutes before desired effect.,Indications: takes 20 mg, Reported on 11/15/2024 varenicline tartrate (CHANTIX STARTING MONTH BOX) 0.5 mg (11)- 1 mg (42) tablet Chantix Starting Month Box 0.5 mg (11)-1 mg (42) tablets in dose pack Active aspirin 81 MG EC tablet Take 81 mg by mouth. 4 Active atorvastatin (LIPITOR) 40 MG tablet Take 1 tablet by mouth every morning. 4 Active ibuprofen (ADVIL,MOTRIN) 800 MG tablet ibuprofen 800 mg tablet Active oseltamivir (TAMIFLU) 75 mg capsule Tamiflu 75 mg capsule Take 1 capsule twice a day by oral route for 5 days. Active peg-electrolyte soln (NULYTELY) 420 gram SolR peg-electrolyte solution 420 gram oral solution Active varenicline tartrate (CHANTIX) 1 mg tablet Take 1 mg by mouth 2 (two) times a day. Active predniSONE (DELTASONE) 20 MG tablet Take 1 tablet (20 mg total) by mouth daily with breakfast. 5 tablet Active Active Problems Problem Noted Date Diagnosed Date Male hypogonadism 11/15/2024 Class 1 obesity 11/15/2024 Coronary atherosclerosis 11/15/2024 Dyslipidemia 11/15/2024 Elevated blood pressure reading 11/15/2024 Hemochromatosis 11/15/2024 Hepatic steatosis 11/15/2024 Varicose veins of legs 11/15/2024 Varicose veins of bilateral lower extremities with other complications 01/20/2023 Assessment & Plan (01/20/2023 8:52 AM EDT): As mentioned he is a CEAP class IV patient his VCSS score is high he has already failed conservative management with tight fitting compression stockings for a long period of time and his symptoms do interfere with his ability to perform his job and activities of daily living. I explained risk benefits and alternatives to him regarding a venaseal vein ablation which we will start on the right and then proceed to the other veins. We will order a post intervention ultrasound. Smoking 01/20/2023 Assessment & Plan (01/20/2023 8:53 AM EDT): I strongly counseled him regarding smoking cessation Benign essential hypertension 01/20/2023 Assessment & Plan (01/20/2023 8:52 AM EDT): We will need to keep an eye on this Immunizations No known immunizations Social History Tobacco Use Types Packs/Day Years Used Date Smoking Tobacco: Every Day Cigarettes Smokeless Tobacco: Former Education Answer Date Recorded Are you interested in more education? Not on sienna e 02/13/2023 Are you concerned about learning? Not on file 02/13/2023 No 02/13/2023 No 02/13/2023 Digital Access Answer Date Recorded No 03/15/2023 No 03/15/2023 Reliable internet access at home? Not on file 03/15/2023 Device with a working camera? Not on file Sex and Gender Information Value Date Recorded Sex Assigned at Not on file Legal Sex Male 9:35 AM EDT Gender Identity Not on file Sexual Orientation Not on file Last Filed Vital Signs Vital Sign Reading Time Taken Comments Blood Pressure 137/89 11/15/2024 1:53 PM EST Pulse 68 11/15/2024 1:53 PM EST Temperature 36.8 C (98.3 F) 11/15/2024 1:53 PM EST Respiratory Rate 18 11/15/2024 1:53 PM EST Oxygen Saturation 97% 11/15/2024 1:53 PM EST Inhaled Oxygen Concentration - - Weight 94.8 kg (209 lb) 01/20/2023 8:35 AM EDT Height 177.8 cm (5' 10 ) 01/20/2023 8:35 AM EDT Body Mass Index 29.99 01/20/2023 8:35 AM EDT Plan of Treatment Health Maintenance Due Date Last Done Comments DEPRESSION SCREENING 1983 SMOKING Hx and SMOKELESS TOBACCO SCREENING 1984 HEPATITIS C SCREENING 1989 HIV ONE-TIME SCREENING (18-65 YEARS) 1989 PNEUMOCOCCAL VACCINES (50+ years) (1 of 2 - PCV) 1990 SCREENING FOR DIABETES 2006 COLOGUARD 2016 COLONOSCOPY 2016 COLORECTAL CANCER SCREENING 2016 FIT TEST 2016 FOBT 2016 SIGMOIDOSCOPY 2016 VIRTUAL COLONOSCOPY 2016 ZOSTER VACCINES (1 of 2) 2021 BLOOD PRESSURE 05/15/2025 11/15/2024 Adult Td,Tdap Booster 05/10/2031 05/10/2021 COVID-19 VACCINE Completed 09/05/2024, , 03/12/2022, Additional history exists HEPATITIS A VACCINES Aged Out No long er eligible based on patient's age to complete this topic HIB VACCINES Aged Out No longer eligi ble based on patient's age to complete this topic MENINGOCOCCAL VACCINES (ACWY) Aged Out No longer eligible based on patient's age to complete this topic MENINGOCOCCAL VACCINES (B) Aged Out N o longer eligible based on patient's age to complete this topic Medical Devices Not on file Insurance [facility] Member Subscriber Plan / Payer (Ef fective 2018-Present) Name:Arnold Sage Relation to Subscriber:Self Name:SageJacquelyny Payer ID:Not on file Type:PPO Address: [address] [employer] BENEFITS ADMINISTRATORS [facility] [employer] [facility] ADMINISTR[address] [place] [address] [place] [address] [place] [address] [place], [place] [address] [facility] Member Subscriber Plan / Payer (Ef fective 2018-Present) Name:Arnold Sage Relation to Subscriber:Self Name:Arnold Sage Payer ID:Not on file Type:PPO Address: [address] ADMINISTRATORS [place] [employer]EF[employer] ADMINISTRATORS [facility] [employer] [facility] ADMINISTRATORS Care Teams Nurse Advisor Relationship Specialty Start Date End Date Marcela Yang PA PCP - General Physician Molecular Pathologist 11/15/24 Additional Source Comments The information contained in this document represents components of the legal health record. It is not the complete legal health record.[facility]
== END 2025-06-14 14:50 | disposition home or self-care (01) ==
LOC: HO.BBR 14:49
PROVIDERS: PCP Physician Assistant Medical; Visit Provider Internal Medicine Hematology
DX: Z13.89 Encounter for screening for other disorder (principal)

== ENCOUNTER 2025-07-13 14:54 | Outpatient (AMB) | payer OTHER, SELFPAY ==
--- NOTE | 2025-07-13 15:03 | A.OFFVIS_ITS ---
Vital Signs 07/13/25 15:05 Height 5 ft 10 in Weight 189 lb 9.561 oz BMI 27.2 BP 138/82 Blood Pressure Location Lt brachial Position Sitting Pulse 69 Intake Visit Reasons: Hepatomegaly, Fatty Liver Intake Note: Arnold presents in the office as a new patient. CC: concerned about his fatty liver. Hes concerned because he seen someone at [facility] and never got back to him and he was done with the practice. States last colo had polyps and states that he has hemochromotosis. 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 Reports dx of HH almost 20 years ago, mother and father are both carriers while he is a compound heterozygote. Follows with Dr Escalera at [facility] and gets phlebotomy q3m. Main sx are fatigue, joint pains and sexual dysfunction that get progressively worse right before a blood letting session and then improve after phlebotomy. Was seen by [facility] in 2023 but had a hard time setting follow ups so changing providers. US elastography 2024 reviewed, high stiffness. US also showed steatosis. Elevated cholesterol and TG noted. Last colo Sep 2022: x3 T.A. Due this year. [facility] Medical History (Updated 07/13/25 @ 15:41 by Susan Helton MD) Hereditary hemochromatosis Hyperlipidemia Hypertriglyceridemia Nicotine dependence, cigarettes, uncomplicated Colon polyps Hepatic steatosis Hepatomegaly Elevated LFTs Antibody response exam Surgical History (Updated 07/13/25 @ 15:05 by SUDHIR Garcia) Hx of colonoscopy History of vasectomy History of hip surgery Family History Father Alcoholic COPD (chronic obstructive pulmonary disease) Depression CAD (coronary artery disease) Paternal Grandmother Alcoholic Paternal Grandfather Alcoholic Mother PTSD (post-traumatic stress disorder) Depression Brother Depression Other FH: mental illness HTN (hypertension) Lung cancer Substance abuse Social History Housing: House Alcohol intake: current Patient Tobacco Use Status: Current everyday Tobacco user Tobacco use type: Cigarette Cigarettes Per Day: 10 Years Smoked: (onset 22yo, 1ppd x 33yrs, now 1/2ppd - 30+PYH) e-Cigarette/Vaping Use: Never Used Second Hand Smoke Exposure: No service: Yes Current occupational status: employed 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 Current occupational exposures/hazards: Yes Cognitive needs: No Hearing needs: No Vision needs: No Review of Systems Const All systems reviewed & are unremarkable except as noted in HPI and below Physical Exam Exam Exam: No apparent distress Nonicteric Abdomen soft, nondistended R hand 5th digit with prev injury otherwise no obv arthritis noted Alert and oriented x3, normal gait Vital Signs: Last Vital Signs Pulse 69 07/13/25 15:05 BP 138/82 07/13/25 15:05 BMI result Body Mass Index 27.2 Assessment & Plan Assessment & Plan (1) Hereditary hemochromatosis: Comment: (therapeutic phlebotomy q 3 months - Dr. Escalera follows) Code(s): E83.110 - Hereditary hemochromatosis Category: Medical (2) Elevated LFTs: Code(s): R79.89 - Other specified abnormal findings of blood chemistry Category: Medical (3) Hepatic steatosis: Code(s): K76.0 - Fatty (change of) liver, not elsewhere classified Category: Medical (4) Colon polyps: Code(s): K63.5 - Polyp of colon Category: Medical Plan Elevated LFTs likely secondary to hemochromatosis and metALD with steatosis. Plan: - Check LFTs, iron profile - US liver bx ordered to assess for underlying fibrosis, iron stores and degree of steatosis Hx of polyps Will also be due for a colo later this year. To be addressed at follow up appt. Follow up 4 months Orders: Orders IRON PROFILE Today E83.110 - Hereditary hemochromatosis Ferritin Today E83.110 - Hereditary hemochromatosis Liver Panel Today E83.110 - Hereditary hemochromatosis Prothrombin Time INR Today E83.110 - Hereditary hemochromatosis US biopsy liver Today E83.110 - Hereditary hemochromatosis Complete Blood Count no Diff Today E83.110 - Hereditary hemochromatosis Coding Level of Care Code New Pt Level 5 (52742) Complex EM visit Add On G2211 Diagnoses Hereditary hemochromatosis E83.110 Elevated LFTs R79.89 Hepatic steatosis K76.0 Colon polyps K63.5
[2025-07-13 15:05] VITALS: BP 138/82; PULSE 69; BMI 27.2
--- OUTSIDE RECORDS SUMMARY | 2025-07-13 17:23 | XMS_ITS | Encounter Summary ---
Author Organization [facility] Address [address] [place] [address] Phone Care Team Providers Care Track Mechanic Name Role Phone Macy Kevin NP Primary Care Provider Marcela Yang Primary Care Provide r Encounter Details Date Type Department Care Team (Latest Contact Info) Description 02/13/2023 Ancillary Orders [facility] [address], [address] [place] [address] Jose M Norwood DO [address] [facility] [address] [facility] [address] [place] [address] [email or web address] Varicose veins of both lower extremities [...] documented as of this encounter Care Teams Track Mechanic Relationship Specialty Start Date End Date Macy Kevin NP [address] [place] [id number] PCP - General Family Medicine 02/16/21 11/14/24 Marcela Yang PA [address] [place] [id number] PCP - General Physician Engineering Executive 11/15/24 documented as of this encounter Additional Source Comments The information contained in this document represents components of the legal health record. It is not the complete legal health record.[facility]
--- OUTSIDE RECORDS SUMMARY | 2025-07-13 17:23 | XMS_ITS | Clinical Summary ---
Author Organization [facility] Address [address] [employer] [facility] [address] [place] [phone] Phone Care Team Providers Care Gold Leaf Roller Name Role Phone Marcela Yang Primary Care [...] of 2) 2021 BLOOD PRESSURE 05/15/2025 11/15/2024 INFLUENZA VACCINE (#1) 2025 , 09/13/2022, 09/13/2022, Additional history exists Adult Td,Tdap Booster 05/10/2031 05/10/2021 COVID-19 VACCINE [...] topic Medical Devices Not on file Insurance COUNT INCLUDES THE [facility] [employer] BENEFITS ADMINISTRATORS COUNT INCLUDES THE [facility] [email or web address] ADMINISTRATORS [address] [place], [place] [address] [place], [place] [address] [place], [place] [address]S [employer] [facility] BENEFITS ADMINISTRATORS S ADMINISTRATORS COUNT INCLUDES THE [facility] [employer] BENEFITS ADMINISTRATORS COUNT INCLUDES THE [facility] [email or web address] ADMINISTRATORS Care Teams Gold Leaf Roller Relationship Specialty Start Date End Date Marcela Yang PA PCP - General Physician Paper And Prints Restorer 11/15/24 Additional Source Comments The information contained in this document represents components of the legal health record. It is not the complete legal health record.[facility]
== END 2025-07-13 15:37 | disposition home or self-care (01) ==
LOC: HO.HGI 14:55
PROVIDERS: PCP Physician Assistant Medical; Visit Provider Internal Medicine
DX: E83.110 Hereditary hemochromatosis (principal); R79.89 Other specified abnormal findings of blood chemistry; K76.0 Fatty (change of) liver, not elsewhere classified; K63.5 Polyp of colon
CPT/HCPCS: 99204

== ENCOUNTER 2025-08-23 09:15 | Outpatient (AMB) | payer OTHER, SELFPAY ==
--- OUTSIDE RECORDS SUMMARY | 2022-12-24 12:19 | XMS_ITS | Continuity of Care Document ---
Author Organization [facility] Address [address] [place] [address] [address] [place] [address] Phone Care Team Providers Care Truck Farmer Name Role Phone Galindo Luz MD, FACS, RVT Unavailable Unavailable Advance Directives Directive Yes / No Effective Date File Name No Information Encounters Encounter Description Practice Location Reason(s) For Visit Diagnoses Date Provider Providers Copied on Encounter [facility], [address] [facility] [address], [place], [id number], tel:[phone] [facility] No Information 0 3 Mirza Morris. [address] [place] [address], [address], . tel:[phone] Referring Provider: Marcela Yang PA-C, [address] [place] [address] [place] [address], [address]. tel:[phone] Family History Family Member Type Diagnosis Age At Onset No Information Payers Payer name Insurance type Covered constitution party ID [facility] Gemidis(s) [employer] [place] CI [id number] Social History Type Description Quantity Date Captured Comments Sex Male Smoking Status No Information Chief Complaint And Reason For Visit No Information Reason For Referral Reason For Referral No Information History Of Present Illness Encounter Date Complaint History Of Prese nt Illness No Information Functional Status Date Functional Assessmen t No Information Instructions Date Instruction Additional Infor mation No Information Assessments Type Assessment Date No Information Patient Care Teams Name Effective Dates (start - stop) Status Members No Information
--- NOTE | 2025-08-23 09:21 | A.OFFPC_ITS ---
Vital Signs 08/23/25 09:23 Height 5 ft 10 in Weight 194 lb 6 oz BMI 27.9 BP 127/69 Blood Pressure Location Lt brachial Position Sitting Respiration 16 Pulse 67 Pulse Source Pulse Oximeter Temp 98.0 F Temp Source Oral Pulse Oximetry (%) 98 Oxygen Delivery Method Room Air Intake Visit Reasons: HDF/[facility]son Intake Note: patient here for HDF/Nobble Unit Manager Required: No Allergies latex Allergy (Unknown, Verified 08/23/25 09:28) Rash Medication List - Last Reconciled 08/23/25 by Charisma Sr CNP tadalafil 20 mg PO DAILY PRN varenicline tartrate (Chantix Starting Month Box) PO PER PKG DIR Tobacco use date assessed: 08/23/25 Dental Screening Dental Screen Date: 08/23/25 Did you have a dental visit in the last 12 months?: Yes Did you have a dental problem in the last 6 months where you did not have access to dental care?: No Was dental information given to patient?: Patient has dentist HPI HPI Comments History of Present Illness Details 55-year-old male presents for hospital d ischarge follow-up. He was evaluated at [facility] 08[facility]17[facility]25 for right upper quadrant pain. Ultrasound revealed liban cyst fluid. Cat scan revealed distended thickened gallbladder without stones. EKG was unremarkable. Labs were unremarkable except slightly elevated AST, ALT, and bilirubin levels. Surgery recommended HIDA scan, however, patient left AMA and before scan was performed. He notes that he has not had any abdominal pain since dischared from the ED. He recently stopped drinking red bull - he drank four 12oz red bull for about 2 years. He rarely drinks alcohol - no more than 1 drink monthly. He is followed by [facility] gastroenterology and has a follow-up appointment with them in October 2025. [facility] Medical History (Updated 08/23/25 @ 09:54 by Charisma Sr CNP) Hereditary hemochromatosis Hyperlipidemia Hypertriglyceridemia Nicotine dependence, cigarettes, uncomplicated Colon polyps Hepatic steatosis Hepatomegaly Elevated LFTs Antibody response exam Surgical History (Updated 07/13/25 @ 15:05 by SUDHIR Garcia) Hx of colonoscopy History of vasectomy History of hip surgery Family History Father Alcoholic COPD (chronic obstructive pulmonary disease) Depression CAD (coronary artery disease) Paternal Grandmother Alcoholic Paternal Grandfather Alcoholic Mother PTSD (post-traumatic stress disorder) Depression Brother Depression Other FH: mental illness HTN (hypertension) Lung cancer Substance abuse Social History Housing: House Alcohol intake: current Patient Tobacco Use Status: Current everyday Tobacco user Tobacco use type: Cigarette Cigarettes Per Day: 10 Years Smoked: (onset 22yo, 1ppd x 33yrs, now 1/2ppd - 30+PYH) e-Cigarette/Vaping Use: Never Used Second Hand Smoke Exposure: No service: Yes Current occupational status: employed 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 Current occupational exposures/hazards: Yes Cognitive needs: No Hearing needs: No Vision needs: No Questionnaire Thrive Questionnaire Date Thrive assessed: 11/01/24 I am a: Patient What is your living situation today?: I have a steady place to live Within the past 12 months, did the food you bought not last and you didn't have the money to get more?: Never true Within the past 12 months, did you worry whether your food would run out before you got money to buy more?: Never true Do you have trouble paying for medicines?: No Do you have trouble getting transportation to medical appointments?: No Do you have trouble paying your heating and electricity bill?: No Do you have trouble taking care of your child, family member or friend?: No Do you have trouble with day-to-day activities such as bathing, preparing meals, shopping, managing finances, etc.?: No Are you currently unemployed and looking for a job?: No Are you interested in more education?: No Please select the resources that you would like help with: None Currently or been in a relationship where the following occur: No concerns reported THRIVE Score: 0 HANG-7 AMB Questionnaire HANG-7 Date HANG - 7 assessed: 02/28/25 Source: Developed by Drs. Freddie Jennings, Savita Card, Nile Kearney and colleagues, with an educational parish from [employer]. Review of Systems Const Details: Const Denies chills, Denies fatigue, Denies fever(s), Denies headache(s) and Denies weakness ENT Denies dizziness and Denies headache(s) Card Denies chest pain, Denies lightheadedness, Denies dyspnea and Denies other (Palpitations) Resp Denies cough, Denies dyspnea, Denies wheezing and Denies other ( shortness of breath) GI Denies abdominal pain, Denies melena, Denies hematochezia, Denies change in bowel habits, Denies dyspepsia and Denies nausea Denies hematuria and Denies dysuria Musc Denies abnormal gait, Denies myalgias, Denies arthralgias, Denies numbness and Denies tingling Skin/Breast Denies rash, Denies unusual bruising and Denies wounds Neuro Denies abnormal gait, Denies dizziness, Denies headache(s), Denies memory loss, Denies numbness, Denies Sensory deficit (Neuro), Denies tingling and Denies weakness Psych Denies anxiety, Denies depression, Denies memory loss Endo Denies cold intolerance, Denies fatigue, Denies heat intolerance, Denies polydipsia and Denies polyuria Aller/Immun Denies wheezing Physical exam (Primary Care) Vital Signs: Last Vital Signs Temp 98.0 F 08/23/25 09:23 Pulse 67 08/23/25 09:23 Resp 16 08/23/25 09:23 BP 127/69 08/23/25 09:23 Pulse Ox 98 08/23/25 09:23 Oxygen Delivery Method Room Air 08/23/25 09:23 BMI result Body Mass Index 27.9 Tobacco/Smoking Status: Tobacco use Status Tobacco use date assessed 08/23/25 08/23/25 09:26 Patient Tobacco Use Status Current everyday Tobacco 08/23/25 09:22 Tobacco use type Cigarette 08/23/25 09:22 e-Cigarette/Vaping Use Never Used 08/23/25 09:22 Thrive Assessment: Date of Thrive Assessment Date Thrive assessed 11/01/24 08/23/25 09:22 Currently or been in a relationship where the following occur: No concerns reported Const Other: General: no acute distress and well developed Nutritional Appearance: well nourished Orientation/consciousness: patient oriented x3 HENMT Head: Yes normocephalic and Yes atraumatic Eyes General: appearance normal, both eyes and all related structures Pupils: Equal, round and reactive pupils present EOM: EOMs intact bilaterally Resp Effort & Inspection: normal respiratory effort Auscultation: clear to auscultation bilaterally Cardio Rate: regular rate Rhythm: regular rhythm Heart sounds: S1 normal heart sound present, S2 normal heart sound present, no gallops, no murmurs and no rubs GI Palpation (GI): No Abdominal aortic bruit present, Soft to palpation, nontender, No hepatosplenomegaly present and No Rebound tenderness present Auscultation: normal bowel sounds General: Yes no CVA tenderness Back/Spine/Pelvis Back: no CVA tenderness Cervical Spine: cervical ROM normal and No Cervical spine tenderness Thoracic/Lumbar Spine: thoraco-lumbar ROM normal, No pain with thoraco-lumbar ROM, No thoracic spinal tenderness and No lumbar spinal tenderness Extrem General: Yes normal to inspection, No edema and No calf tenderness Skin General: warm and dry. Normal skin color. Normal skin turgor Neuro General: patient oriented x3, gait normal and no focal neuro deficit Cranial nerves: Yes Equal, round and reactive pupils present Cognition (Neuro): normal cognition Gait exam (Neuro): Normal gait present Sensory Exam: No Sensory deficit (Neuro) Psych Appearance: grossly normal Affect: normal affect Attitude: cooperative Thought process: Normal thought process present Coding Level of Care Code Est Pt Level 4 (58375) Diagnoses Thickening of wall of gallbladder with pericholecystic fluid K82.8 Assessment & Plan Assessment & Plan (1) Thickening of wall of gallbladder with pericholecystic fluid: Code(s): K82.8 - Other specified diseases of gallbladder Category: Medical Plan: No acute symptoms since recent ED discharge at [facility]. Adequate hydration with water encouraged. Referred to [facility] gastro[facility]ology. Follow-up with PCP with symptoms or concerns. Verbalized understanding and agreed with the plan. Orders: Referrals Gastroenterology Referral K82.8 - Other specified diseases of gallbladder
[2025-08-23 09:23] VITALS: BP 127/69; PULSE 67; RESP 16; TEMP 36.7; O2SAT 98; BMI 27.9
--- OUTSIDE RECORDS SUMMARY | 2025-08-23 10:00 | XMS_ITS | Clinical Summary ---
Author Organization [facility] Address [address] [facility] [address] [place] [address] Phone Care Team Providers Care Heel Cutter Name Role Phone Marcela Yang Primary Care [...] 2025 , 09/13/2022, 09/13/2022, Additional history exists COVID-19 VACCINE ( season) 2025 09/05/2024, 09/13/2022, 03/12/2022, Additional history exists Adult Td,Tdap Booster 05/10/2031 05/10/2021 RSV VACCINE (1 - 1-dose 75+ series) 2046 HEPATITIS A VACCINES Aged Out No long [...] topic Medical Devices Not on file Insurance [facility] [employer] [facility] [employer] [address] [place], [place] [address] [place] [address] [place] [address] [facility] [employer]MIN[employer] [address] [place], [place] [address] [place], [place] [address] [employer] Member Subscriber Plan / Payer (Ef fective 2024-Present) Name:Arnold Sage Relation to Subscriber:Self Name:Arnold Sage Payer ID:[id number] (NAIC) Type:PPO Address: [place] [id number] [address] [employer] Member Subscriber Plan / Payer ( fective 2024-Present) Name:Arnold Sage Relation to Subscriber:Self Name:Arnold Sage Payer ID:[id number] (NAIC) Type:PPO Address: [place] [phone] [place], [place] [address] [employer] Care Teams Heel Cutter Relationship Specialty Start Date End Date Marcela Yang PA PCP - General Physician Stained Glass Painter 11/15/24 Additional Source Comments The information contained in this document represents components of the legal health record. It is not the complete legal health record.[facility]
--- OUTSIDE RECORDS SUMMARY | 2025-08-23 10:01 | XMS_ITS | Encounter Summary ---
Author Organization [facility] Address [address] [place] [address] Phone Care Team Providers Care Manager Rail Name Role Phone Mcay Kevin NP Primary Care Provider Marcela Yang Primary Care Provide r Encounter Details Date Type Department Care Team (Latest Contact Info) Description 02/13/2023 Ancillary Orders [facility] [address] [facility] [address], [address] [place] [address] Jose M Norwood DO [address] [facility] [address] [place] [address] [email or web address] Varicose veins of both lower extremities [...] documented as of this encounter Care Teams Manager Rail Relationship Specialty Start Date End Date Macy Kevin NP [address] [place] [phone] PCP - General Family Medicine 02/16/21 11/14/24 Marcela Yang PA [address] [place] [phone] PCP - General Physician Head Of Data 11/15/24 documented as of this encounter Additional Source Comments The information contained in this document represents components of the legal health record. It is not the complete legal health record.[facility]
== END 2025-08-23 09:51 | disposition home or self-care (01) ==
LOC: HO.HMCFM 09:15
PROVIDERS: PCP Nurse Practitioner Family; Visit Provider Nurse Practitioner Family
DX: K82.8 Other specified diseases of gallbladder (principal)

== ENCOUNTER 2025-10-07 11:24 | Day surgery (SDC) | payer OTHER, SELFPAY ==
--- OUTSIDE RECORDS SUMMARY | 2022-12-24 12:19 | XMS_ITS | Continuity of Care Document ---
Author Organization [facility] Address [address] [place] [address] [address] [place] [address] Phone Care Team Providers Care Home Teaching Gr[employer] 7 And 8 Teacher Name Role Phone Galindo Luz MD, FACS, RVT Unavailable Unavailable Advance Directives Directive Yes / No Effective Date File Name No Information Encounters Encounter Description Practice Location Reason(s) For Visit Diagnoses Date Provider Providers Copied on Encounter [facility], [address] [place] [address] [address], [place], [id number], tel:[phone] [facility] No Information 0 3 Mirza Morris. [address] [place] [address], [place], [address], [place]. tel:[phone] Referring Provider: Marcela Yang [facility], [address] [place] [address], [address]. tel:[phone] Family History Family Member Type Diagnosis Age At Onset No Information Payers Payer name Insurance type Covered constitution party ID Authorteresaa vinny(s) [email or web address] [place] CI [id number] Social History Type Description Quantity Date Captured [...]
--- OUTSIDE RECORDS SUMMARY | 2025-09-19 17:23 | XMS_ITS | Encounter Summary ---
Author Organization [facility] Address [address] [place] [address] Phone Care Team Providers Care Fur Plucker Name Role Phone Macy Kevin NP Primary Care Provider Marcela Yang Primary Care Provide r Encounter Details Date Type Department Care Team (Latest Contact Info) Description 02/13/2023 Ancillary Orders [facility] [address] [facility] [address], [address] [place] [address] Jose M Norwood DO [address] [facility] [address] [place] [address] [email or web address] Varicose veins of [...] documented as of this encounter Care Teams Fur Plucker Relationship Specialty Start Date End Date Macy Kevin NP [address] [place] [phone] PCP - General Family Medicine 02/16/21 11/14/24 Marcela Yang PA [address] [place] [phone] PCP - General Physician Service Desk Specialist 11/15/24 documented as of this encounter Additional Source Comments The information contained in this document represents components of the legal health record. It is not the complete legal health record.[facility]
--- OUTSIDE RECORDS SUMMARY | 2025-09-19 17:23 | XMS_ITS | Clinical Summary ---
Author Organization [facility] Address [address] [facility] [address] [place] [address] Phone Care Team Providers Care Account Services Associate Name Role Phone Marcela Yang Primary Care [...] topic Medical Devices Not on file Insurance [facility] [employer] [facility] [place] [address] [place] [address] [place] [address] [place] [address] [facility] [employer] [address] [place], [place] [address] [place], [place] [address] [employer] Member Subscriber Plan / Payer (Ef fective 2024-Present) Name:Arnold Sage Relation to Subscriber:Self Name:Arnold Sage Payer ID:[id number] (NAIC) Type:PPO Address: [place] [phone] [address] [employer] Member Subscriber Plan / Payer ( fective 2024-Present) Name:Arnold Sage Relation to Subscriber:Self Name:Arnold Sage Payer ID:[id number] (NAIC) Type:PPO Address: [place] [phone] [place], [place] [address] [place] [address] Care Teams Account Services Associate Relationship Specialty Start Date End Date Marcela Yang PA PCP - General Physician Test Operator 11/15/24 Additional Source Comments The information contained in this document represents components of the legal health record. It is not the complete legal health record.[facility]
[2025-10-07] VITALS (14 sets, daily range): BP systolic 116–181; BP diastolic 74–101; PULSE 48–71; RESP 12–20; TEMP 36.6–37.1; O2SAT 94–100; BMI 27.5
--- NOTE | ~2025-10-07 | CT_ITS ---
CT-guided liver biopsy History: Elevated LFTs Procedure: CT-guided liver biopsy Risks and benefits and possible complications were discussed with the patient and consent form was signed. The abdomen was prepped and draped in usual sterile fashion. 1% lidocaine was used for anesthesia. A 17-gauge coaxial needle was inserted through the skin and soft tissues and into the right lobe of the liver. A total of 5, 18-gauge cores were performed. Permanent CT images were archived. 2 Gelfoam torpedoes were inserted through the coaxial and administered into the biopsy tract and at the level of the capsule. The needle was then removed. The specimens were placed in formalin and sent to pathology. The patient tolerated the procedure well. The procedure was performed under moderate sedation with a dedicated nurse for monitoring of vital signs. Moderate sedation time: 20 min This procedure was performed by Marco Evans NP, and directly supervised by Hernan Todd M.D.. CT/CT biopsy liver Impression: CT-guided liver biopsy Electronically signed by: Hernan Todd MD 10/13/2025 02:36 PM [facility] Workstation: [id number]
[2025-10-07 11:51] LABS: MANUAL DIFF FLAG NO
[2025-10-07 11:53] LABS: Hematocrit 47.3 % (42.0-52.0); Hemoglobin 16.5 g/dl (14.0-18.0); Imm Gran Abs Auto 0.03 X10*3/uL (0.00-0.03); Imm Gran Pct Auto 0.4 % (0.0-0.4); Lymphocytes Absolute Auto 1.6 X10*3/uL (1.2-4.9); Mean Corpuscular HGB Conc 34.9 g/dl (31.0-36.0); Mean Corpuscular Hemoglobin 32.7 pg (27.0-33.0); Mean Corpuscular Volume 93.7 fL (80.0-98.0); NRBC Abs Auto 0.000 X10*3/uL (0.0-0.012); NRBC Pct Auto 0.0 /100WBC (0.0-0.2); Platelet Count 205 X10*3/uL (160-400); Red Blood Count 5.05 X10*6/uL (4.60-5.80); White Blood Count 7.6 X10*3/uL (4.8-10.8)
[2025-10-07 12:03] LABS: INTERNATIONAL NORM RATIO 0.9 (0.9-1.1); Prothrombin Time 11.3 SEC (11.2-13.5)
[2025-10-07 12:05] LABS: Anion Gap 12 (12-20); Blood Urea Nitrogen 21 mg/dL (9-16); Calcium 9.7 mg/dL (8.4-10.2); Carbon Dioxide 25 mmol/L (22-29); Chloride 108 mmol/L (96-108); Estimated Glomerular Filt Rate > 60; Potassium 4.7 mmol/L (3.3-5.1); Sodium 140 mmol/L (135-145)
[2025-10-07] MEDS: oxyCODONE HCl Immed Release 5 MG TABLET PO (14:40)
== END 2025-10-07 16:00 | disposition home or self-care (01) ==
PROVIDERS: Radiology Diagnostic Radiology; PCP Physician Assistant Medical; Visit Provider Internal Medicine
DX: E83.110 Hereditary hemochromatosis (principal); K76.0 Fatty (change of) liver, not elsewhere classified
CPT/HCPCS: 36415; 47000; 77012; 80048; 85025; 85610; 86850; 86900; 86901; 88307; 88313; 99152; J2003; J2250; J3010

== ENCOUNTER → 2025-10-07 13:11 | Outpatient (BNV) | payer OTHER, SELFPAY | PROVIDERS: PCP Physician Assistant Medical | DX: E83.110 Hereditary hemochromatosis (principal) | CPT/HCPCS: 47000; 77012 ==